=== PATIENT | female | born 1990 | race Hispanic/Latino ===

== ENCOUNTER 2017-08-08 23:04 | Emergency (ER) | payer OTHER ==
[~2017-08-08] VITALS: Ht 162.6 cm; Wt 97.5 kg
[~2017-08-08 23:04] MED LIST: DILAUDID2 MG PO; FIORICET 300 MG1 CAP PO; FIORICET 325 MG1 TAB PO; FLEXERIL10 MG PO; IBUPROFEN800 MG PO; PERCOCET 325 MG1 TA2 PO; ZOFRAN ODT4 MG PO
--- NOTE | 2017-08-08 23:21 | ED GENERAL ADULT ---
History of Present Illness General Chief Complaint: General Adult Stated Complaint: "ABD PAIN, N+V-D" Source: patient Exam Limitations: no limitations Vital Signs & Intake/Output Vital Signs & Intake/Output Vital Signs Date Time Temp Pulse Resp B/P B/P Pulse O2 O2 Flow FiO2 Mean Ox Delivery Rate 08/09 0356 98.0 78 20 152/87 99 Room Air 08/09 0102 97.0 87 20 146/82 98 Room Air 08/08 2318 98.7 91 18 156/107 98 Room Air ED Intake and Output 08/09 0000 08/08 1200 Intake Total Output Total Balance Patient 215 lb Weight Weight Reported by Patient Measurement Method Allergies Coded Allergies: NO KNOWN ALLERGIES (04/04/15) Triage Note: PT FROM HOME C/O ABD N/V SINCE 1399. PT STATES 4-5 EPISODES OF VOMITING SINCE 1399. PT HAS RESTRICTED EXT BRACELET ON RIGHT ARM D/T FISTULA. PT STATES THAT PAIN IS LOWER PELVIC REGION AND RADIATES TO MID ABD. PT DENIES BILATERAL ARM NUMBNESS/TINGLING, DENIES JAW OR BACK PAIN FROM ABD PAIN. PT AFEBRILE IN TRAIGE, BP ELEVATED 156/107. PT STATES ABD PAIN IS CONSTANT THAT INTENISIFIES. PT STATES BURNING AFTER URINATION. Triage Nurses Notes Reviewed? yes Onset: Gradual Duration: hour(s): Timing: intermittent : No Patient currently breastfeeds: No HPI: 27 y/o female with h/o chronic renal insufficiency (on peritoneal dialysis, performs nightly, last done yesterday) presenting with diffsue abd pain x10 hours. Reports diffuse abd pain, worse in the lower abdomen, with no worsening or alleviating factors. Pain is associated with N/V, has had 4-5 episodes of emesis since onset. Has had 2 similar prior episodes, one a week ago, and one a few weeks before that. Was seen at [facility] at had unremarkable labs, unremarkable CT scan, and unremarkable analysis of peritoneal fluid. Pt was admitted and pain had spontaneously self resolved, so she was discharged home. Was in her USOH until the pain returned earlier today. Denies diarrhea, bloody stools, melena, dysuria, vaginal discharge/odor. (Triage endorses dysuria, but pt denies to me). (Elvi GAYTAN,Tabitha) Reconcile Medications Acetaminophen/Butalbital/Caf (Fioricet 325 MG-50 MG-40 MG) 1 TAB TAB 1-2 TAB PO Q4-6 PRN MIGRAINE BUTALB/ACETAMINOPHEN/CAFFEINE (Fioricet 50-300-40 MG Capsule) 1 CAP CAP 1 TAB PO Q12P PRN Headache CYCLOBENZAPRINE HCL (Flexeril) 10 MG TAB 1 TAB PO 4 TIMES/DAY PRN MUSCLE SPASM HYDROMORPHONE HCL (Dilaudid) 2 MG TAB 1 TAB PO BID PRN PAIN SCALE 8-10 Ondansetron (Zofran Odt) 4 MG ODT 1 TAB PO 4 TIMES/DAY PRN NAUSEA OXYCODONE HCL/ACETAMINOPHEN (Percocet 5-325 MG Tablet) 325 MG/5 MG TAB 1 TAB PO Q4-6 PRN PRN PAIN Oxycodone HCl/Acetaminophen (Percocet 5-325 MG Tablet) 5 MG-325 MG TABLET 1 TAB PO 4XDP PRN PAIN SIX...[id number] (Lis WYMAN,Louie Villalpando) Past History Travel History Traveled to [place] past 21 day No Medical History Any Pertinent Medical History? 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 No (Tabitha Agarwal) Review of Systems Review of Systems Constitutional: Reports: no symptoms. EENTM: Reports: no symptoms. Respiratory: Reports: no symptoms. Cardiovascular: Reports: no symptoms. GI: Reports: abdominal pain, nausea, vomiting. Denies: constipation, diarrhea, melena. Genitourinary: Reports: no symptoms. Musculoskeletal: Reports: no symptoms. Skin: Reports: no symptoms. Neurological/Psychological: Reports: no symptoms. Hematologic/Endocrine: Reports: no symptoms. Immunologic/Allergic: Reports: no symptoms. (Tabitha Agarwal) Physical Exam Physical Exam General Appearance: well developed/nourished, no apparent distress, alert, awake Head: atraumatic, normal appearance Eyes: Bilateral: normal appearance. Neck: normal inspection Respiratory: normal breath sounds, lungs clear Cardiovascular: regular rate/rhythm Gastrointestinal: soft, tenderness (diffuse), No rebound or guarding Back: normal inspection Extremities: normal inspection Neurologic/Psych: awake, alert, oriented x 3, normal gait, normal mood/affect Skin: intact, normal color, warm/dry Core Measures ACS in differential dx? No CVA/TIA Diagnosis: No Sepsis Present: No Sepsis Focused Exam Completed? No (Tabitha Agarwal) Progress Differential Diagnoses I considered the following diagnoses in my evaluation of the patient: [ gastroentertitis vs ovarian torsion vs peritonitis vs UTI vs cervicitis] Initial ED EKG: none (Tabitha Agarwal) Plan of Care: Orders Procedure Date/time Status URINE 08/08 2308 Active URINALYSIS 08/08 2308 Active Laboratory Tests 08/08/17 2310: Urine Color Pending, Urine Clarity Pending, Urine pH Pending, Ur Specific [place] Pending, Urine Protein Pending, Urine Ketones Pending, Urine Nitrite Pending, Urine Bilirubin Pending, Urine Urobilinogen Pending, Ur Leukocyte Esterase Pending, Ur Microscopic Pending, Urine Hemoglobin Pending, Urine Glucose Pending, Urine Test Pending Pt seen and evaluated with the ED attending. Signed out to the ED attending with labs and imaging pending. (Tabitha Agarwal) Diagnostic Imaging: Viewed by Me: Radiology Read, CT Scan. Discussed w/RAD: Radiology Read, CT Scan. Radiology Impression: PATIENT: JULIAN AMARAL PRESENT AGE: 27 PATIENT ACCOUNT NO: [id number] : 92 LOCATION: [facility] ORDERING PHYSICIAN: Louie Hays MD SERVICE DATE: 08/09/17 EXAM TYPE: US - US-TRANSVAGINAL EXAMINATION: US TRANSVAGINAL CLINICAL INFORMATION: Bilateral lower adnexal pain, question torsion COMPARISON: CT from earlier today TECHNIQUE: Sonographic evaluation of the pelvis was performed transabdominally and transvaginally. FINDINGS: The uterus measures 5.4 cm in length and 3.4 x 4.6 cm in AP and transverse dimensions. The endometrial stripe measures 0.2 cm in thickness. The cervix measures 1.2 cm in length. The right ovary measures 2.9 x 1.7 x 2.5 cm and has a normal appearance. The left ovary measures 2.8 x 2.3 x 2.6 cm and also has a normal appearance. Doppler evaluation demonstrates normal- appearing flow in the bilateral ovaries. No appreciable free fluid. IMPRESSION: No acute findings identified. DICTATED BY: Scottie Garcia MD DATE/TIME DICTATED :08/09/17330 SUPERVISOR PURIFICATION:LILLY DATE/TIME TRANSCRIBED:08/09/17330 CONFIDENTIAL, DO NOT COPY WITHOUT APPROPRIATE AUTHORIZATION. < Electronically signed in Other Vendor System> SIGNED BY: Scottie Garcia MD 08/09/17335, PATIENT: JULIAN AMARAL PRESENT AGE: 27 PATIENT ACCOUNT NO: [id number] : 92 LOCATION: [facility] ORDERING PHYSICIAN: Louie Hays MD SERVICE DATE: 08/09/17 EXAM TYPE: CAT - CT ABD & PELVIS W/O IV CONTRAS EXAMINATION: CT ABDOMEN AND PELVIS WITHOUT CONTRAST CLINICAL INFORMATION: Left flank pain COMPARISON: 05/08/2015 TECHNIQUE: Multidetector volumetric imaging was performed from the superior aspect of the liver through the pubic symphysis. Sagittal and coronal reformatted images were obtained on the technologist's workstation. DLP: 807.39 mGy-cm FINDINGS: LUNG BASES: The visualized lung bases are unremarkable. LIVER, GALLBLADDER, AND BILIARY TREE: The liver is normal in size, shape, and attenuation. No focal hepatic lesion or biliary ductal dilatation is present. The gallbladder is unremarkable with no evidence of radiopaque gallstones, gallbladder wall thickening, or obvious pericholecystic inflammatory changes. PANCREAS: Unremarkable. SPLEEN: Unremarkable. ADRENAL GLANDS: Unremarkable. KIDNEYS AND URETERS: The kidneys appear atrophic. Peritoneal dialysis catheter terminates in the pelvis. No hydronephrosis, hydroureter, or calculi seen. No perinephric stranding. BLADDER: Unremarkable. GASTROINTESTINAL TRACT: The small and large bowel are unremarkable. The appendix is unremarkable. ABDOMINAL WALL: No significant hernia is appreciated. LYMPH NODES: Normal. VASCULAR: Unremarkable. PELVIC VISCERA: Unremarkable. OSSEOUS STRUCTURES: Unremarkable. IMPRESSION: No acute findings identified in the abdomen/pelvis. Atrophic kidneys. Peritoneal dialysis catheter terminates in the pelvis. DICTATED BY: Scottie Garcia MD DATE /TIME DICTATED:08/09/17221 SUPERVISOR PURIFICATION:LILLY DATE/TIME TRANSCRIBED: 08/09/17221 CONFIDENTIAL, DO NOT COPY WITHOUT APPROPRIATE AUTHORIZATION. < Electronically signed in Other Vendor System> SIGNED BY: Scottie Garcia MD 08/09/17 0234 Initial ED EKG: none (Lis WYMAN,Louie Villalpando) Departure Departure Condition: Stable Referrals: Laurence Blankenship MD (PCP/Family) Departure Forms: Customer Survey General Discharge Information (Tabitha Agarwal) Departure Disposition: HOME OR SELF CARE Clinical Impression Primary Impression: Abdominal pain Prescriptions: Current Visit Scripts Oxycodone HCl/Acetaminophen (Percocet 5-325 MG Tablet) 1 TAB PO 4XDP PRN PAIN #6 TAB SIX...[id number] Comments 08/09/17, 3:59AM... PT WITH benign work up... negative ct scan/ultrasound, labs... discussed at length... ?dialysis catheter... pt had been cleared by her surgeons before per her report... I counseled her to follow up with her surgeon, her pmd, and gastroenterology. PA/FLEET TECHNICIAN Co-Sign Statement Statement: ED Attending supervision documentation- [x] I saw and evaluated the patient. I have also reviewed all the pertinent lab results and diagnostic results. I agree with the findings and the plan of care as documented in the PA's/FLEET TECHNICIAN's documentation. 08/09/17, 3:47am... examined and evaluated patient several times. discussed at length with patient. ct scan and u/s benign. labs benign... I wonder if her lower abd pain is due to where her peritoneal catheter terminates. 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 [] I have reviewed the ED Record and agree with the PA's/FLEET TECHNICIAN's documentation. [] Additions or exceptions (if any) to the PAs/FLEET TECHNICIAN's note and plan are summarized below: [] (Lis WYMAN,Louie Villalpando) Critical Care Note Critical Care Note Critical Care Time: non-applicable (Tabitha Agarwal)
[2017-08-09 00:36] LABS: ABSOLUTE BASOPHIL COUNT 0 /CUMM (0.0-0.2); ABSOLUTE EOSINOPHIL COUNT 0.2 /CUMM (0.0-0.7); ABSOLUTE GRANULOCYTE CT 0.6 /CUMM (1.4-6.5); ABSOLUTE LYMPH COUNT 1.1 /CUMM (1.2-3.4); ABSOLUTE MONOCYTE COUNT 0.3 /CUMM (0.10-0.60); EOSINOPHIL % 8.2 % (0-5); HEMATOCRIT 26.1 % (37-47); MEAN CORPUSCULAR HGB 32.8 PG (27.0-31.0); MEAN CORPUSCULAR HGB CONC 34.4 G/DL (33.0-37.0); MEAN CORPUSCULAR VOLUME 95.6 FL (81.0-99.0); MEAN PLATELET VOLUME 7.5 FL (7.4-10.4); PLATELET COUNT 295 /CUMM (130-400); RBC DISTRIBUTION WIDTH 12.5 % (11.5-14.5); RED BLOOD CELL CT 2.73 /CUMM (4.20-5.40); WHITE BLOOD CELL COUNT 2.3 /CUMM (4.8-10.8)
[2017-08-09 00:43] LABS: GRANULOCYTE % 28.5 % (42.2-75.2)
--- NOTE | 2017-08-09 02:34 | CT SCAN REPORT ---
EXAMINATION: CT ABDOMEN AND PELVIS WITHOUT CONTRAST CLINICAL INFORMATION: Left flank pain COMPARISON: 05/08/2015 TECHNIQUE: Multidetector volumetric imaging was performed from the superior aspect of the liver through the pubic symphysis. Sagittal and coronal reformatted images were obtained on the technologist's workstation. DLP: 807.39 mGy-cm FINDINGS: LUNG BASES: The visualized lung bases are unremarkable. LIVER, GALLBLADDER, AND BILIARY TREE: The liver is normal in size, shape, and attenuation. No focal hepatic lesion or biliary ductal dilatation is present. The gallbladder is unremarkable with no evidence of radiopaque gallstones, gallbladder wall thickening, or obvious pericholecystic inflammatory changes. PANCREAS: Unremarkable. SPLEEN: Unremarkable. ADRENAL GLANDS: Unremarkable. KIDNEYS AND URETERS: The kidneys appear atrophic. Peritoneal dialysis catheter terminates in the pelvis. No hydronephrosis, hydroureter, or calculi seen. No perinephric stranding. BLADDER: Unremarkable. GASTROINTESTINAL TRACT: The small and large bowel are unremarkable. The appendix is unremarkable. ABDOMINAL WALL: No significant hernia is appreciated. LYMPH NODES: Normal. VASCULAR: Unremarkable. PELVIC VISCERA: Unremarkable. OSSEOUS STRUCTURES: Unremarkable. IMPRESSION: No acute findings identified in the abdomen/pelvis. Atrophic kidneys. Peritoneal dialysis catheter terminates in the pelvis.
--- NOTE | 2017-08-09 03:36 | ULTRASOUND REPORT ---
EXAMINATION: US TRANSVAGINAL CLINICAL INFORMATION: Bilateral lower adnexal pain, question torsion COMPARISON: CT from earlier today TECHNIQUE: Sonographic evaluation of the pelvis was performed transabdominally and transvaginally. FINDINGS: The uterus measures 5.4 cm in length and 3.4 x 4.6 cm in AP and transverse dimensions. The endometrial stripe measures 0.2 cm in thickness. The cervix measures 1.2 cm in length. The right ovary measures 2.9 x 1.7 x 2.5 cm and has a normal appearance. The left ovary measures 2.8 x 2.3 x 2.6 cm and also has a normal appearance. Doppler evaluation demonstrates normal-appearing flow in the bilateral ovaries. No appreciable free fluid. IMPRESSION: No acute findings identified.
[2017-08-09 03:56] VITALS: BP 152/87
[2017-08-09] MEDS ORDERED: PERCOCET 5-3251 EACH PO (04:00)
== END 2017-08-09 04:11 ==
LOC: ERH 23:04
PROVIDERS: Physician Assistant
DX: R10.84 Generalized abdominal pain (principal)
CPT/HCPCS: 87075; 74176; 81001; 81025; 96374; 96375; 96376; J2405